=== PATIENT | male | born 1960 | race Caucasian/White ===

== ENCOUNTER 2018-03-10 21:40 | Inpatient (IN) | payer MEDICARE ==
[2018-03-10 22:01] LABS: #Basophils 0.1 thou/uL (0.0-0.2); #Eosinphils 0.2 thou/uL (0.0-0.7); #Lymphocytes 4.1 thou/uL (1.20-3.40); #Monocytes 1.1 thou/uL (0.11-0.59); #Neutrophils 5.1 thou/uL (1.40-6.50); %Basophils 0.9 % (0.0-1.0); %Eosinophils 1.9 % (0.0-10.0); %Lymphocytes 38.7 % (21.0-51.0); %Monocytes 10.6 % (0.0-10.0); Hemoglobin 14.2 g/dL (14.0-18.0); Mean Corpuscular HGB CONC 34.5 g/dL (32.0-36.0); Mean Corpuscular Hemoglobin 30.2 pg (27.0-31.0); Mean Corpuscular Volume 87.7 fl (80.0-94.0); Mean Platelet Volume 7.8 fL (7.4-10.4); Platelet Count 270 thou/uL (130-400); RBC Distribution Width 12.4 % (11.5-14.5); Red Blood Cell (RBC) Count 4.68 mill/uL (4.70-6.10); White Blood Cell (WBC) Count 10.6 thou/uL (4.8-10.8)
[2018-03-10] MEDS ORDERED: Nitroglycerin 2% Ointment 1 INCH/1 GM Packet ONE (22:13)
[2018-03-10 22:21] LABS: ALT (SGPT) 17 U/L (8-55); AST (SGOT) 17 U/L (5-34); Albumin 4.6 g/dL (3.5-5.0); Alkaline Phosphatase 44 U/L (40-150); Anion Gap 14 mmol/L (10-20); BUN (Urea Nitrogen) 20 mg/dL (8.4-25.7); Bilirubin, Total 0.6 mg/dL (0.2-1.2); Calc. Creatinine Clearance 0 mL/min (70-130); Calcium 10.4 mg/dL (7.8-10.44); Carbon Dioxide 27 mmol/L (22-29); Chloride 102 mmol/L (98-107); Estimated GFR-MDRD 53; Globulin 3.2 g/dL (2.4-3.5); Glucose 76 mg/dL (70-105); Potassium 3.1 mmol/L (3.5-5.1); Protein, Total 7.8 g/dL (6.0-8.3); Sodium 140 mmol/L (136-145)
[2018-03-10 22:25] LABS: Magnesium 2.2 mg/dL (1.6-2.6)
[2018-03-10 22:33] LABS: CKMB 1.2 ng/mL (0-6.6); Troponin I Less than 0.010 ng/mL (< 0.028)
--- NOTE | 2018-03-10 23:05 | RAD ---
PORTABLE UPRIGHT FRONTAL CHEST RADIOGRAPH: 03/10/2018 HISTORY: Chest pain. COMPARISON: 02/02/2015 FINDINGS: Midline sternotomy wires and mediastinal clips are present. Stable prominence of the cardiac silhoue tte and elevation of the right hemidiaphragm. No pneumothorax, pleural fluid, focal consolidation, o r alveolar edema. IMPRESSION: No acute findings. POS: [facility]
[2018-03-11] MEDS ORDERED: Benzonatate 100 MG CAP PO PRN (00:43)
[2018-03-11] MEDS ORDERED: Loratadine 10 MG TAB PO PRN (00:43)
[2018-03-11] MEDS ORDERED: Lorazepam 1 MG TAB PO PRN (00:43)
[2018-03-11] MEDS ORDERED: traMADol HCl 50 MG TAB PO PRN (00:43)
[2018-03-11] MEDS ORDERED: cloNIDine 0.1 MG TAB PO PRN (00:43)
[2018-03-11] MEDS ORDERED: Senokot 8.6 MG TAB PO PRN ×2 (00:43)
[2018-03-11] MEDS ORDERED: hydrALAZINE 20 MG/ML VIAL SLOW IVP PRN (00:43)
[2018-03-11] MEDS ORDERED: Nitroglycerin 0.4 MG TAB (25 Tab Bottle) SL PRN ×2 (00:43→01:05)
[2018-03-11] MEDS ORDERED: Acetaminophen 325 MG TAB PO PRN (00:43)
[2018-03-11] MEDS ORDERED: Ondansetron PF 4 MG/2 ML Vial IVP PRN (00:43)
[2018-03-11] MEDS ORDERED: Bisacodyl 5 MG TAB PO PRN ×2 (00:43)
[2018-03-11 00:44] VITALS: BMI 31.5
[2018-03-11] MEDS ORDERED: ROPINIROLE HCL 25 MG PO PRN (01:05)
[2018-03-11] MEDS ORDERED: HumaLOG 300 UNITS/3 ML VIAL SC PRN ×2 (01:06)
[2018-03-11] MEDS ORDERED: Dextrose 50% Abboject 50 ML SYRINGE SLOW IVP PRN (01:06)
[2018-03-11] MEDS ORDERED: Dextrose 5% in Water 1,000 ML IV PRN (01:06)
[2018-03-11] MEDS ORDERED: Enoxaparin Sodium 100 MG/ML SYRINGE SC SCH (01:15)
[2018-03-11] MEDS ORDERED: Fluticasone Propionate Nasal Spray 16 gm Bottle NASAL PRN (01:30)
--- NOTE | 2018-03-11 01:56 | HP ---
PRIMARY CARE PHYSICIAN: Luigi Chinchilla MD DATE OF ADMISSION: 03/11/2018 CHIEF COMPLAINT: Chest pain. HISTORY OF PRESENT ILLNESS: Mr. Roldan is a very pleasant 58-year-old male with past medical history of coronary artery disease who presented to the emergency room with the above-mentioned complaint. History is mainly obtained by the patient himself and electronic medical records have been reviewed. Case has been discussed with admitting ER physician. According to Mr. Roldan, he has history of known coronary artery disease. He had a cardiac catheteri zation done in 12/2017. He has history of coronary artery bypass graft with known inoperable disease . His last catheterization was in 10/2016. The cardiac catheterization done in 12/2015 showed 1 blo od vessel that was inoperable and another blood vessel in the anterior side according to the patient, which was also blocked. He has been maintained on medical management by Dr. Jennings since then. He re ports that on a daily basis he has some low-grade chest pain consistent with angina on and off. Today, he had similar chest pain, but it was more intense. He describes it as a squeezing sensation and 10/10 in intensity. It was associated with shortness of breath, palpitation, diaphoresis, nausea and dizziness. He describes it as starting at the upper abdomen and lower sternal border. He took nitroglycerin at home without any benefit. EMS was called and he received aspirin en route. In the emergency room, he was given transdermal nitroglycerin and since then his pain has subsided. He was otherwise hemodynamically stable on presentation. The only medication changes for him recently were done by his primary care physician. He reports ho t he was taken off his hydrochlorothiazide and was started on a different blood pressure medication. He reports that his blood pressure normally runs in the 130s range, but hydrochlorothiazide was take n off to provide more adequate blood pressure control. He does not remember the name of the new bloo d pressure medication, but he has not yet started it. He continues to take hydrochlorothiazide. In the emergency room, his initial workup includes serum chemistries, which were rather unremarkable. His initial cardiac enzymes and BNP were also normal. His EKG showed some PVCs, otherwise unremark able. He is now being admitted for further workup and evaluation with a presumptive diagnosis of uns table angina. PAST MEDICAL HISTORY: 1. Coronary artery disease. 2. Dyslipidemia. 3. Hypertension. 4. Hypothyroidism. 5. MA of 07/1996 and 09/2009. 6. Prostate cancer. 7. Diabetes mellitus. PAST SURGICAL HISTORY: 1. Tonsillectomy. 2. Cyst removal from right shoulder. 3. CABG x6 in 2002. 4. Left heart catheterization with stenting in 2001, then repeat left heart catheterization in 2008, history of PTCA of left circumflex 1996. ALLERGIES: No known medication allergies. CURRENT MEDICATIONS: Not confirmed, but he takes carvedilol; losartan; aspirin; Zetia; Ranexa; fenof ibrate; isosorbide, and Plavix among other medications. PSYCHIATRIC HISTORY: No anxiety, no depression. SOCIAL HISTORY: He has no history of drug, tobacco or alcohol abuse. He is and lives with h is family. FAMILY HISTORY: No significant family history of any coronary artery disease or stroke. REVIEW OF SYSTEMS: The following complete review of systems was negative, unless otherwise mentioned in the HPI or below: Constitutional: Weight loss or gain, abil ity to conduct usual activities. Skin: Rash, itching. Eyes: Double vision, pain. ENT/Mouth: Nos e bleeding, neck stiffness, pain, tenderness. Cardiovascular: Palpitations, dyspnea on exertion, or thopnea. Respiratory: Shortness of breath, wheezing, cough, hemoptysis, fever or night sweats. Gas trointestinal: Poor appetite, abdominal pain, heartburn, nausea, vomiting, constipation, or diarrhea. Genitourinary: Urgency, frequency, dysuria, nocturia. Musculoskeletal: Pain, swelling. Neurologic/Psychiatric: Anxiety, depression. Allergy/Immunologi c: Skin rash, bleeding tendency. It is negative except for those mentioned in the history and physi chuyita. LABORATORY DATA: CBC is unremarkable. Serum chemistry shows potassium of 3.1, creatinine of 1.37, w hich seems to be elevated from his baseline at normal. CK-MB and troponin within normal limit. Lipa se is normal. BNP normal at 37. Chest x-ray by my review has no evidence to suggest any acute cardi opulmonary abnormality. He has no pleural effusion or edema or infiltrates. A 12-lead EKG shows etienne e PVCs, otherwise normal sinus rhythm. PHYSICAL EXAMINATION: VITAL SIGNS: Stable. GENERAL: No acute distress, awake, alert, and oriented x3. HEENT: Mucous membrane is moist and pink. No oropharyngeal exudate or erythema. Head is normocepha lic, atraumatic. Pupils are equal, reactive to light and accommodation. Extraocular movement intact . NECK: Supple without any lymphadenopathy, JVD or bruit. CHEST: Clear to auscultation without any wheezing, rales or rhonchi. CARDIOVASCULAR: Rhythm is regular without any murmur, rubs or gallops. ABDOMEN: Soft, nontender, nondistended, positive bowel sounds. EXTREMITIES: Free of any cyanosis, clubbing, or edema. NEUROLOGIC: Nonfocal. SKIN: Free of any rashes or bruises. I feel warm and dry to touch. PSYCHIATRIC: Normal affect. IMPRESSION AND PLAN: 1. Unstable angina. The patient has history of known coronary artery disease and it sounds like he has also some inoperable disease as well. At this time, he will be admitted for further cardiology r ecommendations and monitoring. We will continue him on his aspirin and restart his home medications once confirmed. He is on statin as well as Ranexa, nitrates, ARBs and beta blockers. These will be restarted. We will repeat the echocardiogram. He reports that he was told that his cardiac function is about 40%, but is unsure. At this time, we will continue to trend serial cardiac enzymes. Furth er management will depend upon Cardiology recommendations. At this time, he is hemodynamically stabl e. We will provide him with sublingual nitroglycerin as needed for chest pain. We will give him 1 d ose of therapeutic Lovenox at 1 mg/kg at this time, and defer the further continuation of anticoagula nt therapy to Cardiology as he is also on Plavix. 2. Coronary artery disease. Resume home medications for now. We will at this time: Hold Plavix in case he needs to undergo a cardiac catheterization as he is also receiving Lovenox. Otherwise, cont inue with his aspirin, statin, beta-jonathon, ARBs, nitrates, and Ranexa among others. 3. Add deep venous thrombosis and gastrointestinal prophylaxis. 4. Code status: FULL CODE. Discussed with the patient. 5. History of prostate cancer, currently under remission. 6. Diabetes mellitus. We will start him on insulin sliding scale and Accu-Cheks frequently for clos e monitoring. Hold his long-acting insulin and metformin at this time. He may need to undergo cardi ac invasive procedures and may need to be n.p.o. for the same reason. DISPOSITION: Mr. Roldan is currently being admitted to the hospital under observation status for what seems like a n unstable angina and inoperable coronary artery disease. Further management will depend upon his cl inical course and recommendations from Cardiology team.
[2018-03-11 04:24] LABS: #Eosinphils 0.1 thou/uL (0.0-0.7); #Monocytes 0.5 thou/uL (0.11-0.59); #Neutrophils 4.4 thou/uL (1.40-6.50); %Basophils 0.4 % (0.0-1.0); %Eosinophils 1.2 % (0.0-10.0); %Lymphocytes 28.4 % (21.0-51.0); %Monocytes 6.9 % (0.0-10.0); %Neutrophils 63.1 % (42.0-75.0); Hemoglobin 12.7 g/dL (14.0-18.0); Mean Corpuscular HGB CONC 34.2 g/dL (32.0-36.0); Platelet Count 199 thou/uL (130-400); RBC Distribution Width 12.3 % (11.5-14.5); Red Blood Cell (RBC) Count 4.21 mill/uL (4.70-6.10); White Blood Cell (WBC) Count 6.9 thou/uL (4.8-10.8)
[2018-03-11 04:36] LABS: Anion Gap 12 mmol/L (10-20); BUN (Urea Nitrogen) 25 mg/dL (8.4-25.7); Calc. Creatinine Clearance 85 mL/min (70-130); Calcium 9.6 mg/dL (7.8-10.44); Carbon Dioxide 27 mmol/L (22-29); Chloride 102 mmol/L (98-107); Estimated GFR-MDRD 56; Glucose 224 mg/dL (70-105); Potassium 3.9 mmol/L (3.5-5.1); Sodium 137 mmol/L (136-145)
[2018-03-11 05:04] LABS: Troponin I 0.013 ng/mL (< 0.028)
[2018-03-11] MEDS: Levothyroxine Sodium 25 MCG TAB PO SCH (05:15)
[2018-03-11] MEDS: Levothyroxine Sodium 112 MCG TAB PO SCH (05:15)
[2018-03-11] MEDS ORDERED: Non-Formulary Item 1 EACH (Fenofibrate [Fenofibrate] 160 MG) PO SCH (09:00)
[2018-03-11] MEDS: Potassium Chloride 10 MEQ TAB PO SCH ×2 (09:38→17:33)
[2018-03-11] MEDS: Famotidine 20 MG TAB PO SCH ×2 (09:39→21:41)
[2018-03-11] MEDS: Aspirin 325 mg Enteric Coated Tablet PO SCH (09:39)
[2018-03-11] MEDS: Enoxaparin Sodium 40 MG/0.4 ML SYRINGE SC SCH (09:40)
[2018-03-11] MEDS: Fenofibrate Nanocrystallized 145 MG TAB PO SCH (09:40)
[2018-03-11] MEDS: Losartan 25 MG TAB PO SCH (09:40)
[2018-03-11] MEDS: Carvedilol 3.125 MG TAB PO SCH ×2 (09:41→22:04)
[2018-03-11] MEDS: Amlodipine 5 MG TAB PO SCH ×2 (09:41→21:41)
--- NOTE | 2018-03-11 12:54 | CON ---
DATE OF CONSULTATION: 03/11/2018 DATE OF ADMISSION: 03/10/2018 INDICATION FOR CONSULTATION: A 58-year-old patient with history of known coronary artery disease, wh o has a history of previous stent placements in the past. He has also had a history of bypass surger y. He was felt to have a pretty much now inoperable coronary artery disease. His last cardiac adilson terization was 12/2017, at which time he was found to have a significant stenosis in the distal right coronary artery. He presented to [place] for a second opinion and was told he also had another 90% blockage in the vessel down the front part of his heart and that they had special stents, which were as small as 2 mm in diameter and that this may be a possibility that he can undergo angioplasty and s tent placement. I believe he was planning to see them in the near future for possible intervention t o possibly the left anterior descending artery and we will review his cardiac catheterization to dete rmine if there was a stenosis in that area. I did not have any further catheterization since that ti me and he had had a picture of the cardiac catheterization taken with him the films. He started expe riencing some chest discomfort on Saturday evening. He felt around 08:00, he felt flushed. He had c hest pain, 4/10. He felt some mild nausea and some dizziness. He then ate and felt somewhat better. He took some nitroglycerin and then he had some decrease, but then he felt somewhat weak and shaky. Last night, his pain returned and was 6/10. He took nitroglycerin, but did not improve his symptom s significantly. He also became short of breath and knows he has some cyanosis around the lip area. This only lasts a few seconds or minutes and then resolved and then he presented to the emergency ro om. His pain is in the same area that he normally has his typical angina, but the shortness of breat h has become worse and he is presenting now for further evaluation and treatment. Fortunately, his c ardiac enzymes are unremarkable. His EKG shows a normal sinus rhythm, but no acute changes. He does have some PVCs and has a right ax is deviation, otherwise no significant acute changes were noted on the EKG. PAST MEDICAL HISTORY: Significant for known coronary artery disease. He has had a history of hypert ension, dyslipidemia, hypothyroidism. He has had myocardial infarctions in 1995 and 2008. He has a history of diabetes. He has prostate cancer history. PAST SURGICAL HISTORY: He has had a left heart catheterization with stents in 2001, repeat cardiac c atheterization in 2008. His angioplasty to the left circumflex in 1995. He had bypass surgery x6 in 2002. He has had a cyst removed from the right shoulder. He has had a tonsillectomy. ALLERGIES: None. PRESENT MEDICATIONS: Include Coreg, aspirin, losartan, Zetia, Ranexa 1000 mg twice a day, isosorbide , fenofibrate, nitroglycerin p.r.n., Plavix as well as aspirin. PSYCHOSOCIAL HISTORY: No anxiety or depression. He has family members, who are present. He is michael ied. No significant alcohol or tobacco abuse. FAMILY HISTORY: Unremarkable for any early heart disease. REVIEW OF SYSTEMS: A 12-point review of systems is unremarkable except what was noted in the history of present illness. PHYSICAL EXAMINATION: GENERAL: Reveals a well-developed, well-nourished, very pleasant gentleman, who is in no acute distr ess. He is alert and oriented. VITAL SIGNS: Stable. Blood pressure is 135/77, respiratory rate is 12, heart rate 63 beats a minute and is regular. He is afebrile. HEENT EXAM: Shows the head to be normocephalic and atraumatic. Carotid pulses are present. CHEST: Clear to auscultation without rales, rhonchi, or wheezing. CARDIOVASCULAR: Exam reveals a regular rate and rhythm with occasional ectopy. There are no signifi cant murmurs, heaves, thrills, bruits, or rubs. He has a well-healed midline surgical incision. ABDOMEN: Soft and nontender. Positive bowel sounds are present. EXTREMITIES: Show no clubbing, cyanosis, or edema. Pedal pulses are present. NEUROLOGIC: The patient is fully intact. He has normal strength, normal tone. He ambulates without difficulties. SKIN: Warm and dry. He has a normal affect. No evidence of depression. LABORATORY DATA: Shows negative cardiac enzymes. BNP was only 138, potassium was 3.9, creatinine 1. 31. WBC of 6.9 and hemoglobin 12.7. He had normal liver functions. EKG as noted above. IMPRESSION: 1. Known coronary artery disease in a patient with unstable angina-type symptoms. He has no chest p ain since last night, shortly after admitted to the floor. We will review his old catheterization fi lms to see if there is any further possibility of angioplasty and possible stent placement. He is a very poor candidate to undergo redo bypass surgery due to the very small vessels. He may be a candid ate for angioplasty and stent placement. We will continue to monitor this patient very carefully. 2. History of hypertension. This is under very good control at this time. 3. History of diabetes. His blood sugar is elevated at 224, although this will be dealt with by the primary care service. 4. Hypercholesterolemia. He will continue on his present medications. I will review his most recen t cardiac catheterization again and we will rediscuss these issues with the patient. Otherwise, I wo uld agree with his present management.
[2018-03-11] MEDS ORDERED: Ezetimibe 10 MG TAB PO SCH (21:00)
[2018-03-11] MEDS ORDERED: Rosuvastatin 20 MG TAB PO SCH (21:00)
--- NOTE | 2018-03-11 21:49 | PDOC.PN ---
- Subjective Encounter Start Date: 03/11/18 Encounter Start Time: 13:30 Subjective: pt up in bed has no chest pain - Objective Vital Signs & Weight: Vital Signs (12 hours) Temp Pulse Resp BP Pulse Ox 03/11/18 21:39 65 145/81 H 03/11/18 19:56 98.2 F 66 18 168/80 H 98 03/11/18 15:10 98.1 F 71 12 153/71 H 96 03/11/18 14:18 98.1 F 64 16 03/11/18 13:30 98.1 F 64 16 96 03/11/18 11:20 98.1 F 64 16 143/85 H 96 Weight Weight 219 lb 12.8 oz I&O: 03/10/18 03/11/18 03/12/18 06:59 06:59 06:59 Intake Total 200 2120 Balance 200 2120 Result Diagrams: 03/11/18 04:06 03/11/18 04:06 Additional Labs: Accuchecks 03/11/18 03/11/18 03/11/18 20:59 16:29 11:28 POC Glucose 260 H 250 H 125 H 03/11/18 01:08 POC Glucose 194 H Phys Exam - Physical Examination HEENT: PERRLA, moist MMs, sclera anicteric, TM's clear, oral pharynx no lesions , 2+ tonsils Neck: no nodes, no JVD, supple, full ROM Respiratory: no wheezing, no rales, no rhonchi, wheezing present, clear to auscultation bilateral Cardiovascular: RRR, no significant murmur, no rub, gallop, irregular Gastrointestinal: soft, non-tender, no distention, positive bowel sounds Dx/Plan - Plan * 1) unstable angina * 2) CAD * 3) prostate ca * * plan: per cardiology's notes pt has small vessel disease. Pt is already on ranexa. Cardiology to review his previous cath for further tx. Review of Systems - Review of Systems Eyes: negative: Pain, Vision Change, Conjunctivae Inflammation, Eyelid Inflammation, Redness, Other ENT: negative: Ear Pain, Ear Discharge, Nose Pain, Nose Discharge, Nose Congestion, Mouth Pain, Mouth Swelling, Throat Pain, Throat Swelling, Other Respiratory: negative: Cough, Dry, Shortness of Breath, Hemoptysis, SOB with Excertion, Pleuritic Pain, Sputum, Wheezing Cardiovascular: negative: chest pain, palpitations, orthopnea, paroxysmal nocturnal dyspnea, edema, light headedness, other Gastrointestinal: negative: Nausea, Vomiting, Abdominal Pain, Diarrhea, Constipation, Melena, Hematochezia, Other - Medications/Allergies Allergies/Adverse Reactions: Allergies Allergy/AdvReac Type Severity Reaction Status Date / Time No Known Allergies Allergy Verified 03/11/18 00:54 Medications: Current Medications Acetaminophen (Tylenol) 650 mg PO Q4H PRN PRN Reason: Headache/Fever or Pain Amlodipine Besylate (Norvasc) 5 mg PO BID [facility] Last Admin: 03/11/18 09:41 Dose: 5 mg Aspirin (Ecotrin) 325 mg PO DAILY [facility] Last Admin: 03/11/18 09:39 Dose: 325 mg Benzonatate (Tessalon) 100 mg PO Q4H PRN PRN Reason: Cough Bisacodyl (Dulcolax) 10 mg PO DAILYPRN PRN PRN Reason: Constipation Carvedilol (Coreg) 1.5625 mg PO BID [facility] Last Admin: 03/11/18 09:41 Dose: Not Given Clonidine (Catapres) 0.1 mg PO Q4H PRN PRN Reason: Systolic BP > 160 Dextrose/Water (Dextrose 50%) 25 gm SLOW IVP PRN PRN PRN Reason: Hypoglycemia Ezetimibe (Zetia) 10 mg PO [facility] Enoxaparin Sodium (Lovenox) 40 mg SC 0900 [facility] Last Admin: 03/11/18 09:40 Dose: 40 mg Famotidine (Pepcid) 20 mg PO BID [facility] Last Admin: 03/11/18 09:39 Dose: 20 mg Fenofibrate (Tricor) 145 mg PO DAILY [facility] Last Admin: 03/11/18 09:40 Dose: 145 mg Fluticasone Propionate (Flonase Nasal [place]) 0 gm NASAL DAILYPRN PRN PRN Reason: ALLERGIES Glucagon (Glucagon) 1 mg IM PRN PRN PRN Reason: Hypoglycemia Hydralazine HCl (Apresoline) 10 mg SLOW IVP Q4H PRN PRN Reason: Systolic BP > 170 Dextrose/Water (D5w) 1,000 mls @ 0 mls/hr IV .Q0M PRN; As Directed PRN Reason: Hypoglycemia Insulin Human Lispro (Humalog) 0 units SC .MODERATE SLIDING SC PRN PRN Reason: Moderate Correctional Scale Last Admin: 03/11/18 17:34 Dose: 4 unit Insulin Human Lispro (Humalog) 0 units SC .BEDTIME SLIDING SC PRN PRN Reason: Bedtime Correctional Scale Isosorbide Mononitrate (Imdur) 60 mg PO BID [facility] Last Admin: 03/11/18 09:42 Dose: Not Given Levothyroxine Sodium (Synthroid) 112 mcg PO 0600 [facility] Last Admin: 03/11/18 05:15 Dose: 112 mcg Levothyroxine Sodium (Synthroid) 25 mcg PO 0600 [facility] Last Admin: 03/11/18 05:15 Dose: 25 mcg Loratadine (Claritin) 10 mg PO DAILYPRN PRN PRN Reason: Sinus Symptoms Lorazepam (Ativan) 1 mg PO Q4H PRN PRN Reason: Anxiety/Agitation Losartan Potassium (Cozaar) 50 mg PO DAILY [facility] Last Admin: 03/11/18 09:40 Dose: 50 mg Nitroglycerin (Nitrostat) 0.4 mg SL Q5MIN PRN PRN Reason: Chest Pain Nitroglycerin (Nitrostat) 0.4 mg SL Q5MIN PRN PRN Reason: Angina Ondansetron HCl (Zofran) 4 mg IVP Q6H PRN PRN Reason: Nausea/Vomiting Potassium Chloride (Klor-Con 10) 10 meq PO BID-[facility] Last Admin: 03/11/18 17:33 Dose: 10 meq Ranolazine (Ranexa) 1,000 mg PO BID [facility] Last Admin: 03/11/18 09:40 Dose: 1,000 mg Rosuvastatin Calcium (Crestor) 40 mg PO [facility] Senna (Senokot) 2 tab PO HSPRN PRN PRN Reason: Constipation Tramadol HCl (Ultram) 50 mg PO Q4H PRN PRN Reason: Moderate Pain (4-6)
[2018-03-12] MEDS: Levothyroxine Sodium 112 MCG TAB PO SCH (03:54)
[2018-03-12] MEDS: Levothyroxine Sodium 25 MCG TAB PO SCH (03:54)
[2018-03-12 08:20] VITALS: BP 132/77; TEMP 97.4
[2018-03-12] MEDS: Potassium Chloride 10 MEQ TAB PO SCH (09:14)
[2018-03-12] MEDS: Famotidine 20 MG TAB PO SCH (09:15)
[2018-03-12] MEDS: Losartan 25 MG TAB PO SCH (09:15)
[2018-03-12] MEDS: Aspirin 325 mg Enteric Coated Tablet PO SCH (09:15)
[2018-03-12] MEDS: Carvedilol 3.125 MG TAB PO SCH (09:15)
[2018-03-12] MEDS: Amlodipine 5 MG TAB PO SCH (09:16)
[2018-03-12] MEDS: Fenofibrate Nanocrystallized 145 MG TAB PO SCH (09:16)
[2018-03-12] MEDS: Enoxaparin Sodium 40 MG/0.4 ML SYRINGE SC SCH (09:16)
--- NOTE | 2018-03-12 11:14 | PDOC.CTH ---
Cardiology Progress Note - Subjective The pt seen and examined. No overnight events. No cardiac complaints. He denied any CP or discomfort with exercise. - Objective Vital Signs Temp Pulse Resp BP BP Pulse Ox 03/12/18 08:00 97.4 F L 60 20 95 03/12/18 07:26 97.4 F L 60 20 132/77 95 03/12/18 03:50 97.7 F 60 16 122/66 96 03/11/18 23:48 97.8 F 62 18 132/73 97 Weight 216 lb 14.4 oz 03/11/18 03/12/18 03/13/18 06:59 06:59 06:59 Intake Total 200 2420 Balance 200 2420 - Physical Examination General/Neuro: alert & oriented x3 Neck: no JVD present Lungs: CTA Heart: RRR Abdomen: soft Extremities: other: (No edema) - Telemetry Telemetry Rhythm: SR 70s - Labs Result Diagrams: 03/11/18 04:06 03/11/18 04:06 Troponin/CKMB CK-MB (CK-2) 1.2 ng/mL (0-6.6) 03/10/18 21:46 Troponin I 0.013 ng/mL (< 0.028) 03/11/18 04:06 - Assessment/Plan 1. Unstable angina - His Rima and ECG were WNL. Stable with Ranexa 1000mg and ASA 325mg. The pt plans to f/u with Loan Adviser in [place]. 2. CAD with hx of stent - stable; cont. monitor 3. HTN - stable with current medicatin 4. Hyperlipidemia - on Statin 5. DM type 2 - managed by PCP 6. Prostate ca - stable MAR reviewed * From Cardiac standpoint, the pt is stable to d/c home. The pt will f/u with his Loan Adviser in [place] or Dr Jennings' office within 2-4 wks. Review of Systems - Review of Systems Constitutional: reports: no symptoms reported EENTM: reports: no symptoms reported Respiratory: reports: no symptoms reported Cardiac (ROS): reports: no symptoms reported ABD/GI: reports: no symptoms reported : reports: no symptoms reported Musculoskeletal: reports: no symptoms reported
--- NOTE | 2018-03-12 19:20 | DIS ---
DATE OF ADMISSION: 03/11/2018 DATE OF DISCHARGE: 03/12/2018 DISCHARGE DIAGNOSES: 1. Angina. 2. Coronary artery disease and history of stents. 3. Hypertension. 4. Hyperlipidemia. 5. Diabetes. HOSPITAL COURSE: Patient is a very pleasant 58-year-old male who initially presented to the hospital with complaints of chest pain, was treated as unstable angina. Patient was seen by Cardiology who o rdered an echocardiogram report which indicated an EF of 40-45% with mild global hypokinesia. Recomm ended continuing of medical treatment. Patient will follow up with perfect bind machine operator in [place] and Dr. Jason trevino' office in 2-4 weeks. The patient has been chest pain free during this hospital stay. DISCHARGE MEDICATIONS: As the following. He is going to be going home on Zetia 10 mg daily, Coreg _ ____ mg p.o. b.i.d., potassium 10 mEq b.i.d., metformin 1000 mcg at bedtime, aspirin 81 mg daily, Nor vasc 5 mg b.i.d., hydrochlorothiazide 25 mg daily, fenofibrate 160 mg daily, Plavix 75 mg daily, isos orbide 60 mg b.i.d., Ranexa 1000 mg p.o. b.i.d., Nasonex 2 sprays each p.r.n. to his nose, Cozaar 50 mg daily, levothyroxine 137 mcg daily, rosuvastatin 40 mg daily, nitroglycerin 0.4 sublingual every 5 minutes p.r.n. and insulin Toujeo 64 units subQ daily. PHYSICAL EXAMINATION: VITAL SIGNS: Temperature of 97.7, pulse rate 60, respirations 16, 96% room air, blood pressure 122/6 6. GENERAL: He is awake, alert, oriented x3, does not appear in distress. CV: S1, S2 present. No murmurs, rubs or gallops. ABDOMEN: Soft, nontender. Bowel sounds are present x2. The patient has been stable from cardiology's perspective to be discharged home.
--- NOTE | 2018-04-05 22:15 | EKG ---
Test Reason : CP Blood Pressure : / mmHG Vent. Rate : 071 BPM Atrial Rate : 071 BPM P-R Int : 176 ms QRS Dur : 118 ms QT Int : 412 ms P-R-T Axes : 018 -37 065 degrees QTc Int : 447 ms Sinus rhythm with frequent Premature ventricular complexes Left axis deviation Anteroseptal infarct , age undetermined Abnormal ECG Confirmed by MOHINI BALDERAS D.O. ([id number]), purchasing expeditor BELIA JOSHI ([id number]) on 04/05/2018 10:13:58 PM Referred By: Confirmed By:MOHINI BALDERAS D.O.
== END 2018-03-12 11:12 | disposition home or self-care (01) | DRG 303 ==
LOC: ERS 21:40 → 2SW 23:20 → OBSVTOIN 23:20
PROVIDERS: ADMIT Internal Medicine; ATTEND Internal Medicine
DX: I25.110 Atherosclerotic heart disease of native coronary artery with unstable angina pectoris (principal); E03.9 Hypothyroidism, unspecified; Z95.1 Presence of aortocoronary bypass graft; E78.5 Hyperlipidemia, unspecified; I25.10 Atherosclerotic heart disease of native coronary artery without angina pectoris; I10 Essential (primary) hypertension; I25.2 Old myocardial infarction; E11.9 Type 2 diabetes mellitus without complications
CPT/HCPCS: 36415; 36416; 71045; 80048; 80053; 82553; 83690; 83735; 83880; 84484; 85025; 93005; 93306; J1650

== ENCOUNTER 2019-12-12 08:46 | Observation (INO) | payer MEDICARE ==
[2019-12-12 09:12] LABS: #Basophils 0.1 thou/uL (0.0-0.2); #Eosinphils 0.2 thou/uL (0.0-0.7); #Lymphocytes 1.9 thou/uL (1.20-3.40); #Monocytes 0.8 thou/uL (0.11-0.59); #Neutrophils 7.4 thou/uL (1.40-6.50); %Basophils 0.8 % (0.0-1.0); %Eosinophils 2.1 % (0.0-10.0); %Lymphocytes 18.3 % (21.0-51.0); %Monocytes 7.7 % (0.0-10.0); %Neutrophils 71.1 % (42.0-75.0); Hemoglobin 14.3 g/dL (14.0-18.0); Mean Corpuscular HGB CONC 32.5 g/dL (32.0-36.0); Mean Corpuscular Hemoglobin 27.9 pg (27.0-31.0); Mean Platelet Volume 8.9 fL (7.4-10.4); Platelet Count 216 thou/uL (130-400); RBC Distribution Width 12.5 % (11.5-14.5); Red Blood Cell (RBC) Count 5.12 mill/uL (4.70-6.10); White Blood Cell (WBC) Count 10.4 thou/uL (4.8-10.8)
--- NOTE | 2019-12-12 09:27 | RAD ---
RADIOGRAPH CHEST 1 VIEW: DATE: 12/12/2019 HISTORY: 59-year-old male with chest pain FINDINGS: There is no airspace density, pulmonary edema, or pneumothorax. The lateral costophrenic angles are n ot effaced. Sternotomy wires. IMPRESSION: No acute pulmonary findings.
[2019-12-12 09:28] LABS: ALT (SGPT) 13 U/L (8-55); AST (SGOT) 13 U/L (5-34); Albumin 4.1 g/dL (3.4-4.8); Alkaline Phosphatase 62 U/L (40-110); Anion Gap 13 mmol/L (10-20); BUN (Urea Nitrogen) 14 mg/dL (8.4-25.7); Bilirubin, Total 0.9 mg/dL (0.2-1.2); Calc. Creatinine Clearance 0 mL/min (70-130); Calcium 9.4 mg/dL (7.8-10.44); Carbon Dioxide 29 mmol/L (23-31); Chloride 104 mmol/L (98-107); Estimated GFR-MDRD 70; Globulin 3.1 g/dL (2.4-3.5); Glucose 113 mg/dL (80-115); Potassium 3.6 mmol/L (3.5-5.1); Protein, Total 7.2 g/dL (5.8-8.1); Sodium 142 mmol/L (136-145)
[2019-12-12] MEDS ORDERED: Nitroglycerin 0.4 MG TAB 1 EACH ONE (09:41)
[2019-12-12] MEDS ORDERED: Aspirin Chewable 81 MG TAB ONE (09:41)
[2019-12-12 09:50] LABS: CKMB 1.7 ng/mL (0-6.6)
[2019-12-12] MEDS ORDERED: Ondansetron PF 4 MG/2 ML Vial ONE (10:26)
[2019-12-12] MEDS ORDERED: Morphine 4 MG/ML VIAL ONE (10:26)
[2019-12-12] MEDS ORDERED: Ondansetron ODT 4 MG TAB SL PRN (10:35)
[2019-12-12] MEDS ORDERED: Acetaminophen 325 MG TAB PO PRN (10:35)
[2019-12-12] MEDS ORDERED: Ondansetron PF 4 MG/2 ML Vial IVP PRN (10:35)
[2019-12-12 12:13] LABS: Troponin I 0.037 ng/mL (< 0.028)
--- NOTE | 2019-12-12 13:04 | PDOC.HHP ---
Hospitalist HPI - History of Present Illness Chest pain History of Present Illness: Mr. Roldan is a 59 y/o male with a PMHx of CAD, [place], Unstable Angina, T2DM, and HTN who presented to the ED this morning due to chest pain that woke him up from sleep around 0500. The patient reports that he woke up to a stabbing pain between his shoulder blades that felt like an ice pick. The patient says his pain was slightly better with sitting up but would return after a few seconds. He did not ambulate at home so is unsure of association with exertion. but feels similar to the pain he had with his first heart attack. His pain is worst with taking a deep breath. He denies worsening with food intake. He has mild dry cough, but no fevers or chills, no abdominal pain, nausea or vomiting. He took two nitroglycerin at home with no relief and thus came to the ER. The patient is s/p CABG in 2002. He has had multiple cardiac caths, last one showing occluded grafts to RCA along with diffuse distal disease in the LAD. He did have angioplasty and stent placement to the right coronary artery but no intervention on the left. ED Course: Vitals in the ER showed BP 166/80, Pulse 72, RR 18, T 97.6, SpO2 98. EKG Showed normal sinus rhythm, rate 70, multifocal PVC's, normal conduction, ST segments normal. T waves inverted, areas affected: lateral leads [place]: left. CBC and BMP were unremarkable. Troponin was 0.043 and 0.037 at three hrs. Chest X ray showed no cardiopulmonary abnormalities. He received aspirin, morphine, nitroglycerin, and zofran in the ER. The patient states that his current pain is 3/10 possibly secondary to morphine, but he is not sure. His current pain is a squeezing pain located substernally. Hospitalist ROS - Review of Systems Constitutional: denies: fever, chills, sweats Respiratory: reports: shortness of breath (at baseline). denies: cough Cardiovascular: reports: chest pain (midsternal, squeezing and radiating to neck ) Gastrointestinal: denies: nausea, vomiting, abdominal pain Musculoskeletal: reports: neck pain (radiating). denies: arm pain, back pain Neurological: denies: weakness - Medication Medications: Tylenol with codeine NItroglycerin Amlodipine Coreg Aspirin Zyrtec Plavix Zetia Flovent HCTZ Novolog Insulin glargine Imdur 60 mg po bid Levothyroxine Losartan Metformin Pramipexole Hospitalist History - Past Medical History Source: patient Cardiac: reports: CAD (5 stents), HTN, [place] (2x), Hyperlipidemia. denies: CHF Pulmonary: reports: angina (at rest worsened w/ activity), heart attack, high cholesterol. 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 Heme/Onc: reports: Cancer (prostate- radical prostatectomy 5 yrs ago) Endocrine: reports: Diabetes (T2), Hypothyroidism (17 yrs) Other Medical History: TWo clogged arteries one anteriorly and one posteriorly - Past Surgical History Other Surgical History: Prostate removal Cardiac stents - Family History Family History: reports: cancer (father, mother), cardiac disorder (CAD sister) , diabetes mellitus (sister), hypertension (parents) Other Family History: Cancer Hypertension CAD in sister - Social History Smoking Status: Never smoker Alcohol: reports: None Drugs: reports: none Living Situation: With Family Activity level: independent ambulation - Exam General Appearance: NAD, awake alert Eye: PERRL ENT: normocephalic atraumatic Neck: supple, no JVD, no carotid bruit Heart: RRR, normal peripheral pulses Respiratory: CTAB, no wheezes, no rales, no ronchi, normal chest expansion, no tachypnea Gastrointestinal: soft, non-tender, non-distended, normal bowel sounds, no palpable masses, no hepatomegaly, no splenomegaly, no bruit, no guarding, no rigidity Extremities: no cyanosis, no clubbing, no edema Skin: normal turgor, no lesions, no rashes Psychiatric: normal affect, normal behavior, A&O x 3 Hospitalist Results - Labs Result Diagrams: 12/12/19 08:57 12/12/19 08:57 Lab results: WBC 10.4 thou/uL (4.8-10.8) 12/12/19 08:57 Hgb 14.3 g/dL (14.0-18.0) 12/12/19 08:57 Hct 44.1 % (42.0-52.0) 12/12/19 08:57 MCV 86.0 fL (78.0-98.0) 12/12/19 08:57 Plt Count 216 thou/uL (130-400) 12/12/19 08:57 Neutrophils % 71.1 % (42.0-75.0) 12/12/19 08:57 Sodium 142 mmol/L (136-145) 12/12/19 08:57 Potassium 3.6 mmol/L (3.5-5.1) 12/12/19 08:57 Chloride 104 mmol/L (98-107) 12/12/19 08:57 Carbon Dioxide 29 mmol/L (23-31) 12/12/19 08:57 BUN 14 mg/dL (8.4-25.7) 12/12/19 08:57 Creatinine 1.08 mg/dL (0.7-1.3) 12/12/19 08:57 Glucose 113 mg/dL (80-115) 12/12/19 08:57 Calcium 9.4 mg/dL (7.8-10.44) 12/12/19 08:57 Total Bilirubin 0.9 mg/dL (0.2-1.2) 12/12/19 08:57 AST 13 U/L (5-34) 12/12/19 08:57 ALT 13 U/L (8-55) 12/12/19 08:57 Alkaline Phosphatase 62 U/L (40-110) 12/12/19 08:57 Creatine Kinase 115 U/L (30-200) 12/12/19 08:57 CK-MB (CK-2) 1.7 ng/mL (0-6.6) 12/12/19 08:57 Troponin I 0.037 ng/mL (< 0.028) H 12/12/19 11:37 Serum Total Protein 7.2 g/dL (5.8-8.1) 12/12/19 08:57 Albumin 4.1 g/dL (3.4-4.8) 12/12/19 08:57 - EKG Interpretation EKG: normal sinus rhythm with PVCS, poor R wave progression in lateral leads Hospitalist H&P A/P - Plan Plan: This is 59 year old male with history of CAD (2 [place], 6x CABG, 5 Stents), HTN, and T2DM presenting to the ER with chest pain, found to have positive troponin, admitted for further workup. Chest pain - possibly secondary to NSTEMI - Suspect NSTEMI vs. unstable angina due to patient's baseline angina along with elevated troponin along with patient reporting similar pain as with previous [place]. Do not suspect GI etiology due to no pain on eating and no hx of GERD. No musculoskeletal reproduction of pain. Chest Xray normal and d-dimer normal -continue aspirin, plavix -will add statin - patient has received nitro x 3. Had some relief with pain down to 4/10 third time. Will give one dose of lovenox therapeutic - cardiology consulted - will check ECHO #Type II DM- controlled on Glargine, Novalog. Hold metformin #Restless leg syndrome - stable on pramipexole #Hypothyroidism - stable on levothyroxine #Hypertension - controlled on HCTZ. Continue beta-jonathon and amlodipin. Hold losartan for now in case any procedure may be performed DVT prophylaxis: will add therapeutic lovenox Code status: full code
[2019-12-12] MEDS ORDERED: Nitroglycerin 0.4 MG TAB (25 Tab Bottle) ONE (14:24)
[2019-12-12] MEDS ORDERED: Acetaminophen/Codeine 30-300mg Tablet PO PRN (14:41)
[2019-12-12 15:54] LABS: Troponin I 0.033 ng/mL (< 0.028)
[2019-12-12] MEDS: Nitroglycerin 0.4 MG TAB (25 Tab Bottle) SL PRN ×4 (17:26→22:22)
[2019-12-12 17:57] VITALS: BMI 31.2
[2019-12-12] MEDS ORDERED: Famotidine 20 MG TAB PO SCH (18:00)
[2019-12-12] MEDS: Mometasone 100 MCG HFA INHALER INH SCH (19:11)
[2019-12-12] MEDS: Enoxaparin Sodium 100 MG/ML SYRINGE SC SCH (20:41)
[2019-12-12] MEDS: Hydrochlorothiazide 25 MG TAB PO SCH (20:42)
[2019-12-12] MEDS: Carvedilol 3.125 MG TAB PO SCH (20:43)
[2019-12-12] MEDS: Amlodipine 5 MG TAB PO SCH (20:43)
[2019-12-12] MEDS: Insulin Glargine 30 UNITS in Pre-Filled Syringe 1 EACH SC SCH (20:47)
[2019-12-12] MEDS ORDERED: Aspirin 81 mg Enteric Coated Tablet PO SCH (21:00)
[2019-12-12] MEDS ORDERED: INSULIN GLARGINE HUM REC ANLOG 38 UNIT SQ SCH (21:00)
[2019-12-12] MEDS ORDERED: Pramipexole Di-HCl 0.125 MG TAB PO SCH (21:00)
[2019-12-12] MEDS ORDERED: HumaLOG 300 UNITS/3 ML VIAL SC SCH (21:00)
[2019-12-12] MEDS ORDERED: Ezetimibe 10 MG TAB PO SCH (21:00)
[2019-12-12] MEDS ORDERED: Loratadine 10 MG TAB PO SCH (21:00)
[2019-12-12] MEDS ORDERED: Morphine 2 MG/ML SYRINGE SLOW IVP PRN (23:06)
[2019-12-13] MEDS ORDERED: Levothyroxine Sodium 25 MCG TAB PO SCH (06:00)
[2019-12-13] MEDS ORDERED: Levothyroxine Sodium 112 MCG TAB PO SCH (06:00)
[2019-12-13] MEDS: Mometasone 100 MCG HFA INHALER INH SCH (06:40)
[2019-12-13] MEDS ORDERED: LEVOTHYROXINE SODIUM 137 MCG PO SCH (09:00)
[2019-12-13] MEDS ORDERED: Clopidogrel Bisulfate 75 MG TAB PO SCH (09:00)
[2019-12-13] MEDS: Insulin Glargine 30 UNITS in Pre-Filled Syringe 1 EACH SC SCH (09:55)
[2019-12-13] MEDS: Enoxaparin Sodium 100 MG/ML SYRINGE SC SCH (09:55)
[2019-12-13] MEDS: Carvedilol 3.125 MG TAB PO SCH (09:56)
[2019-12-13] MEDS: Hydrochlorothiazide 25 MG TAB PO SCH (09:56)
[2019-12-13] MEDS: Amlodipine 5 MG TAB PO SCH (09:56)
[2019-12-13 12:12] VITALS: BP 140/76; TEMP 97.6
--- NOTE | 2019-12-13 14:27 | PDOC.EVN ---
Event Note - Event Note Event Note: Patient was seen around 12:00. He requested to leave AMA. His chest pain has resolved, he thinks the lovenox must have helped. Cardiology had not come by to see him yet. 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 Spoke with Dr. Jennings who stated at the minimum he should have an inpatient stress test. Patient was informed of risk of heart attack if he leaves and possibly . Patient states he accepts these risks and wants to go home and not wait longer. He states he has an appointment with Dr. Jennings on Saturday but will call her first thing in the morning tomorrow and come back to the hospital if the chest pain reoccurs.
--- NOTE | 2019-12-13 15:06 | DIS ---
DATE OF ADMISSION: 12/12/2019 DATE OF DISCHARGE: 12/13/2019 DISCHARGE DIAGNOSES: [id number] myocardial infarction versus unstable angina. (PATIENT LEFT AMA) CONSULTATIONS: Cardiology. However, patient left AMA before Cardiology was able to see the patient. PROCEDURES: None. BRIEF HISTORY OF PRESENT ILLNESS: This is a 59-year-old male with past medical history of CAD, [place], unstable angina, and hypertension, who presented to the emergency room with stabbing chest pain in between his shoulder blades. He also reported shortness of breath. The patient has a history of a CABG in 2002 as well as multiple cardiac caths with his most recent one showing occluded grafts to his RCA, which he underwent stent placement and diffuse distal disease in the LAD, which was nonoperable. The patient had an EKG, which showed multifocal PVCs with normal sinus rhythm and some inverted T-waves. Troponin was slightly elevated at 0.043. Chest x-ray was normal. The patient was given aspirin, morphine, nitroglycerin in the ER with improvement in his pain to 3 after morphine. The patient was admitted for further workup. HOSPITAL COURSE: NSTEMI versus unstable angina: The patient continued to report chest pain at rest. He had received nitroglycerin 3 times and only one time had reported improvement in his pain down to 4/10. He denied any symptoms of heartburn and reported taking antacids in the past without any relief. D-dimer was checked, which was normal. The patient was continued on his aspirin and Plavix and was started on Lovenox for suspected unstable angina versus NSTEMI. Per patient this improved his symptoms. Cardiology was consulted. The patient was unable to be seen by Cardiology, however, due to multiple STEMIs the day prior. The patient did not want to wait for Cardiology consultation and requested to be sent home. An echocardiogram was done, however, results were still pending. The patient left AMA and accepted any risks of with going home. He states he will follow up with Dr. Jennings on Saturday and try to get an appointment sooner. He states he will call her office tomorrow. DISCHARGE PHYSICAL EXAMINATION: VITAL SIGNS: Temperature 97.6, heart rate 65, respiratory rate 16, O2 saturation 94% on room air, blood pressure 140/76. GENERAL: The patient is alert, awake, oriented x3. CVS: Regular rate and rhythm with no murmurs, rubs, or gallops. LUNGS: Clear to auscultation bilaterally. ABDOMEN: Positive bowel sounds, soft, nontender, nondistended. EXTREMITIES: No edema. PERTINENT LABORATORY DATA: CBC 12/12: Was unremarkable. BMP 12/12: Was unremarkable. LFTs 12/12: Were normal. Troponin I: Was 0.043, 0.037, and 0.033. CK-MB was 1.7. D-dimer 12/12: Was 0.40. PERTINENT IMAGING: Chest x-ray of 12/12: No acute pulmonary findings. EKG: Normal sinus rhythm with PVCs with some inverted T-waves. DISCHARGE CONDITION: Stable, but the patient is leaving AMA. He has no chest pain on discharge DIET: Heart healthy diet. DISCHARGE MEDICATIONS: 1. Tylenol with Codeine 300 mg p.o. q.4 hours p.r.n. 2. Nitroglycerin 0.4 mg sublingual q.5 minutes p.r.n. 3. Amlodipine 5 mg p.o. b.i.d. 4. Aspirin 81 mg p.o. at bedtime. 5. Coreg 3.125 mg half tablet p.o. b.i.d. 6. Zyrtec 10 mg p.o. q.p.m. 7. Plavix 75 mg p.o. daily. 8. Zetia 10 mg p.o. at bedtime. 9. Flovent Diskus 50 mcg/INH b.i.d. 10. HCTZ 12.5 mg p.o. b.i.d. 11. NovoLog aspart 9 units subcutaneously at bedtime. 12. Lantus 38 units subcu b.i.d. 13. Imdur 60 mg p.o. b.i.d. 14. Levothyroxine 137 mcg p.o. daily. 15. Losartan 50 mg p.o. daily. 16. Metformin 1000 mg p.o. q.a.m. and 2000 mg p.o. at bedtime. 17. Potassium chloride 10 mEq p.o. b.i.d. 18. Mirapex 0.125 mg p.o. at bedtime. DISCHARGE INSTRUCTIONS: The patient is to follow up with Cardiology, DAYNA Shah. The patient left AMA from the hospital. The patient was advised that he should undergo a nuclear stress test, consideration of a repeat cardiac cath. Job ID: [id number] [facility] [place] [facility]
--- NOTE | 2019-12-15 21:06 | EKG ---
Test Reason : CHEST PAIN Blood Pressure : / mmHG Vent. Rate : 070 BPM Atrial Rate : 070 BPM P-R Int : 190 ms QRS Dur : 128 ms QT Int : 440 ms P-R-T Axes : 044 -32 099 degrees QTc Int : 475 ms Sinus rhythm with occasional Premature ventricular complexes Possible Left atrial enlargement Left axis deviation Non-specific intra-ventricular conduction block Cannot rule out Anteroseptal infarct (cited on or before 22-AUG-2011) T wave abnormality, consider lateral ischemia Abnormal ECG When compared with ECG of 12-DEC-2019 08:58, (Unconfirmed) T wave inversion more evident in Lateral leads Confirmed by Fernanda FORRESTER ([id number]) on 12/15/2019 9:05:53 PM Referred By: SUHAS Confirmed By:Fernanda FORRESTER
== END 2019-12-13 12:43 | disposition left against medical advice (07) ==
LOC: ERS 08:46 → INTOOBSV 10:38 → ERHOLD 10:38 → 2SW 12:53
PROVIDERS: ADMIT Internal Medicine; ATTEND Internal Medicine
DX: R07.9 Chest pain, unspecified (principal); I25.10 Atherosclerotic heart disease of native coronary artery without angina pectoris; I25.810 Atherosclerosis of coronary artery bypass graft(s) without angina pectoris; I10 Essential (primary) hypertension; E11.9 Type 2 diabetes mellitus without complications; E78.5 Hyperlipidemia, unspecified; E78.00 Pure hypercholesterolemia, unspecified; E03.9 Hypothyroidism, unspecified; G25.81 Restless legs syndrome; I25.2 Old myocardial infarction; Z53.29 Procedure and treatment not carried out because of patient's decision for other reasons; Z79.02 Long term (current) use of antithrombotics/antiplatelets; Z79.4 Long term (current) use of insulin; Z79.51 Long term (current) use of inhaled steroids; Z79.82 Long term (current) use of aspirin; Z79.899 Other long term (current) drug therapy; Z85.46 Personal history of malignant neoplasm of prostate; Z90.79 Acquired absence of other genital organ(s); Z95.1 Presence of aortocoronary bypass graft; Z95.5 Presence of coronary angioplasty implant and graft
CPT/HCPCS: 71045; 80053; 82550; 82553; 82962 ×2; 84484 ×2; 85025; 85379; 93005; 93306; 96372 ×2; 96374; 96375; 96376; 99285; G0378 ×3; 36415; 36416; 93010; J1650; J1815; J2270; J2405

== ENCOUNTER 2021-12-22 08:26 | Outpatient (CLI) | payer MEDICARE ==
[2021-12-22] MEDS ORDERED: Iopamidol 370 76% 100 ML VIAL ONE (10:18)
== END 2021-12-22 08:27 | disposition home or self-care (01) ==
LOC: CT 08:26
PROVIDERS: ATTEND Family Medicine
DX: R10.32 Left lower quadrant pain (principal); K57.92 Diverticulitis of intestine, part unspecified, without perforation or abscess without bleeding; K80.20 Calculus of gallbladder without cholecystitis without obstruction
CPT/HCPCS: 74177; Q9967

== ENCOUNTER 2022-05-10 09:31 | Outpatient (CLI) | payer MEDICARE | END 2022-05-10 09:32 | disposition home or self-care (01) | LOC: BICMRI 09:31 | PROVIDERS: ATTEND Family Medicine | DX: M51.16 Intervertebral disc disorders with radiculopathy, lumbar region (principal); M51.87 Other intervertebral disc disorders, lumbosacral region; M48.061 Spinal stenosis, lumbar region without neurogenic claudication; M48.07 Spinal stenosis, lumbosacral region | CPT/HCPCS: 72148 ==

== ENCOUNTER 2022-07-11 12:19 | Outpatient (CLI) | payer MEDICARE | END 2022-07-11 12:20 | disposition home or self-care (01) | LOC: BICMRI 12:19 | PROVIDERS: ATTEND Neurological Surgery | DX: M25.551 Pain in right hip (principal); M67.951 Unspecified disorder of synovium and tendon, right thigh ==

== ENCOUNTER 2022-07-19 10:40 | Outpatient (CLI) | payer MEDICARE | END 2022-07-19 10:41 | disposition home or self-care (01) | LOC: BICRAD 10:40 | PROVIDERS: ATTEND Neurological Surgery | DX: M47.26 Other spondylosis with radiculopathy, lumbar region (principal) | CPT/HCPCS: 72100 ==

== ENCOUNTER 2023-12-11 16:00 | Outpatient (CLI) | payer MEDICARE | END 2023-12-11 16:01 | disposition home or self-care (01) | LOC: SLEEPLAB 16:00 | PROVIDERS: ATTEND Family Medicine | DX: G47.33 Obstructive sleep apnea (adult) (pediatric) (principal); I25.10 Atherosclerotic heart disease of native coronary artery without angina pectoris; I10 Essential (primary) hypertension; E66.9 Obesity, unspecified; G47.00 Insomnia, unspecified; R51.9 Headache, unspecified; R06.83 Snoring; R53.83 Other fatigue | CPT/HCPCS: 95811 ==

== ENCOUNTER 2025-10-28 03:35 | Emergency (ER) | payer OTHER ==
[2025-10-28 04:07] LABS: ALT (SGPT) 49 U/L (Less than 45); AST (SGOT) 61 U/L (11-34); Albumin 3.0 g/dL (3.1-4.5); Alkaline Phosphatase 50 U/L (40-110); Anion Gap 25 mmol/L (10-20); BUN (Urea Nitrogen) 18 mg/dL (8.4-25.7); Bilirubin, Total 0.3 mg/dL (0.3-1.2); Calc. Creatinine Clearance 0 mL/min (70-130); Calcium 8.6 mg/dL (7.8-10.44); Carbon Dioxide 20 mmol/L (23-31); Chloride 106 mmol/L (98-107); Globulin 2.5 g/dL (2.4-3.5); Glucose 334 mg/dL (80-115); Potassium 3.9 mmol/L (3.5-5.1); Sodium 147 mmol/L (136-145)
[2025-10-28 04:46] LABS: Anisocytosis SLIGHT = 6-15 cells HPF (0-5); Burr Cells SLIGHT = 2-5 cells HPF (0-1); Nucleated RBC (Manual Ct) 1 % (0); Platelet Adequacy Comment Platelets Normal; Polychromasia SLIGHT = 2-3 cells HPF (0-2); Smudge Cells 14.3 %
[2025-10-28 05:11] LABS: Hematocrit 46.5 % (42.0-52.0); Hemoglobin 14.1 g/dL (14.0-18.0); Mean Corpuscular Hemoglobin 29.1 pg (27.0-31.0); Mean Corpuscular Volume 96.1 fL (78.0-98.0); Platelet Count 194 10x3/uL (130-400); Red Blood Cell (RBC) Count 4.84 mill/uL (4.70-6.10); White Blood Cell (WBC) Count 13.19 10x3/uL (4.8-10.8)
== END 2025-10-28 04:02 | disposition expired ==
LOC: ERS 03:35
DX: I46.9 Cardiac arrest, cause unspecified (principal); I25.2 Old myocardial infarction; E11.9 Type 2 diabetes mellitus without complications
CPT/HCPCS: 31500; 80053; 84484; 85025; 92950; 94002